=== PATIENT | female | born 1990 | race Caucasian/White ===

== ENCOUNTER 2016-10-24 18:35 | Emergency (ER) | payer MEDICAID ==
[2016-10-24] MEDS ORDERED: MORPHINE 4 MG/ML SYR ONE (19:03)
[2016-10-24] MEDS ORDERED: ONDANSETRON ODT 4 MG TAB ONE (19:03)
[2016-10-24] MEDS ORDERED: LIDOCAINE 1% MDV 20 ML ONE (19:03)
[2016-10-24] MEDS ORDERED: CLINDAMYCIN 600 MG/4 ML VIAL ONE (19:39)
== END 2016-10-24 20:12 | disposition home or self-care (01) ==
LOC: ER 18:35
DX: L02.214 Cutaneous abscess of groin (principal)
CPT/HCPCS: 87071; 96372